=== PATIENT | male | born 1995 | race Caucasian/White ===

== ENCOUNTER 2019-01-14 20:41 | Emergency (ER) | payer OTHER ==
[2019-01-14 21:29] VITALS: BP 125/70; PULSE 72; RESP 18; TEMP 98.7
[2019-01-14 21:30] VITALS: O2SAT 99
--- NOTE | 2019-01-14 22:01 | ED PDOC ---
HPI: General Adult Time Seen by Provider: 01/14/19 21:38 Chief Complaint (Nursing): ENT Problem History Per: Patient History/Exam Limitations: no limitations Onset/Duration Of Symptoms: Days Additional Complaint(s): 23 yo healthy M presents for evaluation of infection or allergic reaction to bilateral ear lobes. Pt reports 5 days ago he got both ears pierced with silver. 2 days ago he noticed blisters to the ears, redness or swelling. He took them out and has been cleaning with alcohol. He has noticed some pus draining and notes the blisters popped and have dried since. He denies fevers, pain inside ears, known allergies. Pmd: Dr. Ora Cobian Past Medical History Reviewed: Historical Data, Nursing Documentation, Vital Signs Vital Signs: Last Vital Signs Temp 98.7 F 01/14/19 21:28 Pulse 72 01/14/19 21:28 Resp 18 01/14/19 21:28 BP 125/70 01/14/19 21:28 Pulse Ox 99 01/14/19 21:28 Primary Care Provider: FAMILY PROVIDER,NO - Medical History PMH: Asthma - Family History Family History: States: Unknown Family Hx - Home Medications Home Medications: Ambulatory Orders Medication Instructions Recorded Bacitracin Ointment [Bacitracin] 30 gm TOP BID #1 tube 01/14/19 Cephalexin [Keflex] 500 mg PO TID 7 Days #21 capsule 01/14/19 - Allergies Allergies/Adverse Reactions: Allergies Allergy/AdvReac Type Severity Reaction Status Date / Time No Known Allergies Allergy Verified 09/02/14 16:55 Review of Systems Constitutional: Negative for: Fever ENT: Positive for: Ear Pain, Ear Discharge. Negative for: Nose Congestion, Mouth Pain Physical Exam - Reviewed Nursing Documentation Reviewed: Yes Vital Signs Reviewed: Yes - Physical Exam Comments: GENERAL APPEARANCE: Patient is awake, alert, oriented x 3, in no acute distress. SKIN: Warm, dry; (-) cyanosis. ENMT: external ears: bilateral lower ear lobes, no earrings in place, (+) erythema (+) swelling (+)wamr to touch (+) dried blister like areas, no fluctance no active drainge, Canals : (-) cerumen impaction, TMs: (-) TM bulging and (-) erythema, (-)effusion, (-) perforation,(-) vesicles, other ear normal. Frontal / maxillary sinuses : (-) tenderness. (-) TMJ tenderness. Pharynx: Clear; (-) erythema, (-) exudate. Airway patent: (-) stridor. NECK: (-) stiffness, (-) tenderness, (-) lymphadenopathy. LUNGS: clear, (-) wheezing, (-) rhonchi. CARDIAC: RRR, (-) murmurs, (-) gallops. - ECG O2 Sat by Pulse Oximetry: 99 Medical Decision Making Medical Decision Makin:38 initial eval - infection bacitracin applied Discussed diagnosis, treatment, return precautions and f/u with pt who is understanding, in agreement and stable for dc Disposition - Clinical Impression Clinical Impression: Infected pierced ear - Patient ED Disposition Is Patient to be Admitted: No Counseled Patient/Family Regarding: Studies Performed, Diagnosis, Need For Followup, Rx Given - Disposition Referrals: Ora Cobian MD [Medical Doctor] - Disposition: Routine/Home Disposition Time: 22:05 Condition: STABLE Additional Instructions: Return to ED for new or worsening symptoms, fever >100.4, increase redness or swelling. Follo wup with your primary care doctor. Take medications as prescribed. Apply ointment 1-2 times a day. Use warm compresses. Keep areas clean and dry Prescriptions: Bacitracin Ointment [Bacitracin] 30 gm TOP BID #1 tube Cephalexin [Keflex] 500 mg PO TID 7 Days #21 capsule Instructions: Wound Infection, Cellulitis (Skin Infection), Adult (DC) Print Language: INDONESIAN - POA Present On Arrival: None
== END 2019-01-14 22:12 | disposition home or self-care (01) ==
LOC: H.ER 20:41
DX: L08.9 Local infection of the skin and subcutaneous tissue, unspecified (principal)